=== PATIENT | female | born 1965 | race Caucasian/White ===

== ENCOUNTER 2017-06-13 05:45 | Inpatient (IN) | payer OTHER ==
[2017-06-13] MEDS ORDERED: CEFAZOLIN 2 GM/50 ML (PMX) 50 ML IVPB (06:30)
[2017-06-13] MEDS ORDERED: LACTATED RINGER'S 1,000 ML IV* (06:30)
== END 2017-06-13 08:00 | disposition home or self-care (01) | DRG 761 ==
LOC: REC 05:45
DX: N81.4 Uterovaginal prolapse, unspecified (principal); H57.9 Unspecified disorder of eye and adnexa; Z53.8 Procedure and treatment not carried out for other reasons
CPT/HCPCS: 86850; 86900; 86901; 93005

== ENCOUNTER 2017-09-17 05:59 | Inpatient (IN) | payer OTHER ==
[2017-09-17] MEDS ORDERED: LACTATED RINGER'S 1,000 ML IV* (06:00)
[2017-09-17] MEDS ORDERED: METHYLENE BLUE 1% 10 ML INJ (06:41)
[2017-09-17] MEDS ORDERED: LIDOCAINE 1%/EPI 30 ML INJ (06:41)
[2017-09-17] MEDS ORDERED: VANCOMYCIN 1 GM (PMX) 250 ML IVPB (07:30)
[2017-12-17] MEDS: LACTATED RINGER'S 1,000 ML IV* ×3 (07:30→20:39)
[2017-12-17] MEDS ORDERED: PROPOFOL 20 ML (07:36)
[2017-12-17] MEDS ORDERED: LIDOCAINE 2% (SDV) 5 ML INJ (07:36)
[2017-12-17] MEDS ORDERED: MIDAZOLAM 1 MG/ML 2 ML INJ (07:36)
[2017-12-17] MEDS ORDERED: SUCCINYLCHOLINE CHLORIDE 100 MG/5 ML SYG IV (07:36)
[2017-12-17] MEDS ORDERED: ROCURONIUM 50 MG INJ (07:36)
[2017-12-17] MEDS ORDERED: DEXAMETHASONE 4 MG/ML 1 ML INJ (07:47)
[2017-12-17] MEDS ORDERED: CEFAZOLIN 1 GM INJ (07:47)
[2017-12-17] MEDS ORDERED: BUPIVACAINE 0.5% (SDV) 30 ML INJ (07:47)
[2017-12-17] MEDS ORDERED: FAMOTIDINE 20 MG INJ (07:48)
[2017-12-17] MEDS ORDERED: ONDANSETRON 4 MG INJ (07:48)
[2017-12-17] MEDS: CEFAZOLIN 2 GM/50 ML (PMX) 50 ML IVPB ×2 (07:50→08:00)
[2017-12-17] MEDS ORDERED: MEPERIDINE 25 MG INJ IV (08:00)
[2017-12-17] MEDS ORDERED: HYDROmorphONE 1 MG/5 ML IV SYRINGE IV ×3 (08:00)
[2017-12-17] MEDS ORDERED: hydrALAzine 20 MG INJ IV (08:00)
[2017-12-17] MEDS ORDERED: FENTAnyl 50 MCG/ML VIAL IV ×3 (08:00)
[2017-12-17] MEDS ORDERED: PROCHLORPERAZINE 10 MG INJ IV (08:00)
[2017-12-17] MEDS ORDERED: LABETALOL HCL 20MG INJ IV (08:00)
[2017-12-17] MEDS ORDERED: DIPHENHYDRAMINE 50 MG INJ IV (08:00)
[2017-12-17] MEDS ORDERED: ONDANSETRON 4 MG INJ IV (08:00)
[2017-12-17] MEDS ORDERED: HYDROmorphONE 2 MG/ML SYG (08:15)
[2017-12-17] MEDS: VASOPRESSIN 20 UNITS INJ (08:24)
[2017-12-17] MEDS ORDERED: SUGAMMADEX SODIUM 200 MG/2 ML VIAL IV ×2 (09:10→09:18)
[2017-12-17] MEDS: CLINDAMYCIN 2% 40 GM VAG CR VAG ×2 (09:16→09:30)
[2017-12-17] MEDS ORDERED: KETOROLAC 30 MG INJ IV (10:00)
[2017-12-17] MEDS ORDERED: METOCLOPRAMIDE 10 MG INJ IV (10:00)
[2017-12-17] MEDS ORDERED: HYDROCODONE/APAP (5/325) TAB PO (10:00)
[2017-12-17] MEDS: morphine 2 MG INJ IV (14:31)
[2017-12-17] MEDS: CEFAZOLIN 1 GM/50 ML (PMX) 50 ML IVPB ×2 (15:07→20:35)
[2017-12-17] MEDS: ONDANSETRON 4 MG INJ IV (19:39)
[2017-12-18] MEDS: CEFAZOLIN 1 GM/50 ML (PMX) 50 ML IVPB (05:11)
[2017-12-18 06:51] LABS: ADD MAN DIFF? NO
[2017-12-18 07:02] LABS: BASOPHILS % 0.4 % (0.0-2.0); EOSINOPHILS % 0.3 % (0.0-7.0); HEMATOCRIT 38.1 % (37.0-47.0); HEMOGLOBIN 12.1 g/dl (12.0-16.0); LYMPHOCYTES # 2.3 10^3/ul (0.8-2.9); LYMPHOCYTES % 23.9 % (15.0-51.0); MEAN CORPUSCULAR HEMOGLOBIN 28.1 pg (29.0-33.0); MEAN CORPUSCULAR HGB CONC 31.8 g/dl (32.0-37.0); MEAN CORPUSCULAR VOLUME 88.4 fl (82.0-101.0); MEAN PLATELET VOLUME 11.1 fl (7.4-10.4); MONOCYTE # 0.9 10^3/ul (0.3-0.9); MONOCYTES % 8.8 % (0.0-11.0); NEUTROPHIL # 6.4 10^3/ul (1.6-7.5); NEUTROPHILS % 66.4 % (39.0-77.0); PLATELET COUNT 211 10^3/UL (140-415); RED BLOOD COUNT 4.31 10^6/ul (4.20-5.40)
[2017-12-18 07:02] LABS: WHITE BLOOD COUNT 9.6 10^3/ul (4.8-10.8)
[2017-12-18] MEDS: LACTATED RINGER'S 1,000 ML IV* ×3 (08:45→20:39)
[2017-12-18] MEDS: MAGNESIUM HYDROXIDE 30ML CUP PO (15:56)
[2017-12-18] MEDS ORDERED: morphine LIQ (10 MG/5 ML) CUP PO (22:00)
[2017-12-19] MEDS: LACTATED RINGER'S 1,000 ML IV* (05:42)
[2017-12-19] MEDS: MAGNESIUM HYDROXIDE 30ML CUP PO (09:36)
== END 2017-12-19 11:25 | disposition home or self-care (01) | DRG 743 ==
LOC: REC 05:59 → PP2 12-17 15:30
PROVIDERS: Specialist
PROC: 0UT97ZZ Resection of Uterus, Via Natural or Artificial Opening (ICD-10-PCS; principal; 2017-12-17 07:30)
PROC: 0TSC0ZZ Reposition Bladder Neck, Open Approach (ICD-10-PCS; 2017-12-17 07:30)
PROC: 0JQC0ZZ Repair Pelvic Region Subcutaneous Tissue and Fascia, Open Approach (ICD-10-PCS; 2017-12-17 07:30)
DX: N81.89 Other female genital prolapse (principal)
CPT/HCPCS: 71045; 85025; 86850; 86900; 86901; 87086; 88305; 93005